=== PATIENT | female | born 1965 | race Two or more races ===

== ENCOUNTER 2022-05-27 08:33 | Emergency (ER) | payer OTHER ==
[~2022-05-27] VITALS: Ht 154.9 cm; Wt 69.9 kg
[~2022-05-27 08:33] MED LIST: DIOVAN HCT 160-1 TA1 PO; PROVENTIL3 ML/2.5 M IH
== END 2022-05-27 16:08 ==
LOC: ER 08:33
DX: R10.30 Lower abdominal pain, unspecified (principal); N28.1 Cyst of kidney, acquired; I10 Essential (primary) hypertension; Z88.8 Allergy status to other drugs, medicaments and biological substances; Z91.013 Allergy to seafood